=== PATIENT | female | born 1970 | race Caucasian/White ===

== ENCOUNTER 2018-09-25 09:24 | Emergency (ER) | payer BC, SELFPAY ==
[2018-09-25 09:25] VITALS: BP 204/94; PULSE 81; RESP 18; TEMP 36.6; O2SAT 96; BMI 27.4
--- NOTE | 2018-09-25 09:43 | ED.VISSUMM ---
- ER Visit Summary Date of Service: 09/25/18 Chief Complaint: Homicidal History of Present Illness: The patient is a 48 F history of depression. Patient sees a counseling center. Today she made statements about potentially wanting to harm someone. They pink slipped her and send her to the ER. She denies being suicidal. She denies her being institutionalized for psychiatric care. Physical Examination: Vital signs are stable and afebrile. HEENT exam unremarkable. Neck nontender. Lungs clear to auscultation bilaterally. Heart regular rhythm no murmur. Chest wall nontender. Abdomen soft nontender. Patient is moving all 4 extremities. Neurovascularly intact. Calves are nontender without edema or cords. Neurologically she is awake alert with no focal motor deficits. Test Results: ED mental health workup. CBC, chemistry and were all negative. Tox screen was positive for benzodiazepines only. Alcohol was normal. Emergency Department Course and Treatment: Patient will undergo crisis evaluation. Currently she is medically cleared. On repeat exam at 1135 patient is doing well. She was treated earlier with Tylenol. Treatment Plan: [] Disposition: [] Impression: Acute homicidal ideation This note was generated with [employer] dictation software. It may contain incorrect words, spelling, and punctuation that were not noted in review of the chart prior to signing ED Disposition - Plan for ED Patient: Chief Complaint: Suicidal Referrals: Germán Alvarez MD [Primary Care Provider] -
[2018-09-25 10:12] LABS: Absolute Lymphocyte Count 1.42 X10^3/ul (0.83-4.51); Absolute Neutrophil Count 4.4 X10^3/uL (2.0-7.7); Basophil# 0.01 X10^3/uL; Basophil% 0.1 % (0-1); Eosinophil# 0.18 X10^3/uL; Eosinophils% 2.6 % (0-5); Hematocrit 40.8 % (37-47); Hemoglobin 13.9 g/dl (12.0-15.0); Lymphocyte # 1.42 X10^3/ul (4.0); Lymphocyte % 20.6 % (19-41); Mean Corp Hgb Conc 34.1 g/gl (32-36); Mean Corpuscular Hgb 32.6 pg (27.0-32.0); Mean Corpuscular Volume 95.8 fL (81-99); Mean Platelet Vol. 9.1 fl (6.2-12.0); Monocyte# 0.92 X10^3/uL; Monocyte% 13.3 % (0-10); Neutrophil # 4.35 X10^3/uL (2.7-7.7); Neutrophil % 63.1 % (47-70); POSITIVE COUNT NO; POSITIVE DIFFERENTIAL NO; POSITIVE MORPHOLOGY NO; Platelet Count 260 K/mm3 (150-450); Red Blood Count 4.26 M/mm3 (4.2-5.4); White Blood Count 6.9 K/mm3 (4.4-11.0)
[2018-09-25 10:28] LABS: Anion Gap 5 (5-15); BUN 6 mg/dL (7-18); BUN/Creat Ratio 7.8 RATIO (10-20); Calcium,Total 8.9 mg/dL (8.5-10.1); Chloride 107 mmol/L (98-107); Creatinine, Serum 0.77 mg/dL (0.55-1.02); EST Glomerular Filtration Rate 85 mL/min (>60); Est Glom Filt Rate - Afr Amer 103 mL/min (>60); Estimated Creatinine Clearance 76.32 ml/min; Glucose 93 mg/dL (74-106); Potassium 3.8 mmol/L (3.5-5.1); Sodium Level 140 mmol/L (136-145)
[2018-09-25 10:34] LABS: Amphetamine Urine VISTA NEGATIVE (<1000 ng/mL); Barbiturate Urine VISTA NEGATIVE (< 200 ng/mL); Benzodiazepine Urine VISTA POSITIVE (< 200 ng/mL); Cocaine Urine VISTA NEGATIVE (< 300 ng/mL); Ecstacy Urine VISTA NEGATIVE (< 500 ng/mL); Methadone Urine VISTA NEGATIVE (< 300 ng/mL); PCP Urine VISTA NEGATIVE (< 25 ng/mL); THC Urine VISTA NEGATIVE (< 50 ng/mL); Vista UDS pH Range 6
[2018-09-25 10:44] LABS: Pregnancy, Serum, hCG Quali. NEGATIVE Negative (0-9 Nonpreg)
[2018-09-25] MEDS: Acetaminophen 500 MG Tablet 1000 MG PO (11:29)
--- NOTE | 2018-09-25 11:30 | ED.RN ---
THANH WITH CRISIS AWARE PT IS MEDICALLY CLEARED AND NEEDS TO BE EVALUATED
[2018-09-25 11:55] VITALS: BP 135/77; PULSE 78; RESP 16; O2SAT 98
--- NOTE | 2018-09-25 11:55 | ED.RN ---
THANH WITH CRISIS WILL BE HERE AT 1245 OR BEFORE
[2018-09-25 12:00] VITALS: PULSE 71; RESP 16; O2SAT 98
[2018-09-25 13:00] VITALS: BP 111/74; PULSE 69; RESP 16; O2SAT 98
[2018-09-25 14:01] VITALS: PULSE 68; RESP 16; O2SAT 99
[2018-09-25] MEDS: LORazepam 1 MG Tablet PO (16:48)
[2018-09-25 17:05] VITALS: BP 124/78; PULSE 74; RESP 16; O2SAT 99
== END 2018-09-25 17:19 ==
PROVIDERS: Emergency Provider Emergency Medicine; Family Provider Family Medicine; PCP Family Medicine
DX: R45.850 Homicidal ideations (principal); F32.9 Major depressive disorder, single episode, unspecified; Z72.0 Tobacco use; Z79.899 Other long term (current) drug therapy
CPT/HCPCS: 36415; 80048; 80307; 80320; 84703; 85025; 99285; G0480